=== PATIENT | male | born 1980 | race Caucasian/White ===

== ENCOUNTER 2017-03-02 14:25 | Emergency (ER) | payer SELFPAY ==
--- NOTE | ~2017-03-02 | ER ---
PATIENT'S NAME: CARINA CHO [facility] AGE: 36 Y [address] ROOM: [place] [address] LOCATION: ED ADMIT DATE: 03/02/2017 ER/Outpatient Report DISCHARGE DATE: 03/02/2017 FAMILY PHYSICIAN: Yunior Pascual MD ATTENDING PHYSICIAN: Tri Banuelos Time of Arrival: 1430 hours. Time of Evaluation: 1435 hours. CHIEF COMPLAINT: Right shoulder pain. HISTORY OF PRESENT ILLNESS: The patient states that he has been having right shoulder pain, started 3 days ago. He states it woke him up. Denies having any injury to that shoulder. He states he does have some numbness of his right arm, feels like his collarbone has caused problems with his windpipe. He states he has trouble breathing because of it. He states he came to the ER 3 days ago, but they could not help him. He went to the [facility] today, they sent him back to the ER. We have no record of him being seen and he said he was never actually seen. ALLERGIES: NO KNOWN ALLERGIES. MEDICATIONS: He has been taking Tylenol and ibuprofen for the pain. No other medications. PAST MEDICAL HISTORY: Benign. PAST SURGERIES: None. SOCIAL HISTORY: Smokes half pack per day and has for the last 24 years. Uses alcohol on a rare basis and denies use of drugs. ROS: Negative other than those mentioned in the HPI. PHYSICAL EXAMINATION: VITAL SIGNS: He weighed 73 kg; blood pressure is 118/60; pulse of 85; respirations 16; temperature of 97, tympanic; O2 saturation is 97% on room air. PATIENT'S NAME: CARINA CHO [facility] AGE: 36 Y [address] ROOM: [place] [address] LOCATION: ED ADMIT DATE: 03/02/2017 ER/Outpatient Report DISCHARGE DATE: 03/02/2017 FAMILY PHYSICIAN: Yunior Pascual MD ATTENDING PHYSICIAN: Tri Banuelos GENERAL: He is awake, alert, and oriented x4. SKIN: [place], warm, and dry. RESPIRATIONS: Even and nonlabored. LUNGS: Lung sounds are clear throughout. HEART: Regular rate and rhythm. EXTREMITIES: The patient has good movement of the right arm. He is able to reach across his body up above his head. He has strong radial and ulnar pulses. No deformities are seen. No pain along palpation of the clavicle. LABORATORY DATA AND X-RAYS: X-rays were completed. Radiology reports no bony abnormality. X-rays were reviewed with Dr. Banuelos also. IMPRESSION: Right shoulder pain. PLAN: A prescription is written for naproxen. To rest, ice, or heat to the shoulder. A sling was supplied to help with comfort. He is to follow up with his primary provider if symptoms persist or worsen. He verbalizes understanding. BECKY ARANA APRN FOR [facility]/cha /[id number] d: 03/03/17 0207 t: 03/05/17 1826, OUTPATIENT REPORT
== END 2017-03-02 15:38 | disposition disaster alternative care site (69) ==
LOC: GMED 14:25
DX: M25.511 Pain in right shoulder (principal); F17.210 Nicotine dependence, cigarettes, uncomplicated